=== PATIENT | female | born 1965 | race Caucasian/White ===

== ENCOUNTER → 2021-02-19 | Outpatient (CLI) | payer OTHER ==
[~2021-02-19] VITALS: Ht 154.9 cm; Wt 44.5 kg
[~2021-02-19] MED LIST: ASCO500T17 PO; LOSA50TA63 PO; MULT-593 PO; MV-M1TAB20 PO
== END | disposition home or self-care (01) ==
LOC: PREOP 05:59
PROVIDERS: ATTEND Surgery
DX: Z01.818 Encounter for other preprocedural examination (principal)

== ENCOUNTER 2021-03-20 07:00 | Day surgery (SDC) | payer OTHER ==
[~2021-03-20] VITALS: Ht 154.9 cm; Wt 44.5 kg
[2021-03-20] MEDS ORDERED: LACTATED RINGERS 1,000 ML IV STA (07:03)
[2021-03-20] MEDS ORDERED: LACTATED RINGERS 1,000 ML IV ONE (07:10)
[2021-03-20] MEDS ORDERED: MIDAZOLAM 2 MG/2 ML (VERSED) VIAL ONE (07:11)
[2021-03-20] MEDS ORDERED: PROPOFOL INJECTION 50 ML IV ONE (07:12)
[2021-03-20] MEDS ORDERED: HURRICAINE EXT TUBE (BENZOCAINE) XX PRN (07:15)
[2021-03-20 07:39] VITALS: BP 114/90
[2021-03-20 08:30] VITALS: BP 104/59
[2021-03-20 08:35] VITALS: BP 94/56
--- NOTE | 2021-03-20 08:39 | Progress Note-Post Operative ---
Post-Operative Progess Note Surgeon (s)/Senior Business Intelligence Analyst (s) Surgeon RANDALL BAIRES DO Senior Business Intelligence Analyst: na Pre-Operative Diagnosis gerd, family hx colon cancer, blood in stools Post-Operative Diagnosis hiatal hernia, gastritis, polyps, hemorrhoids Procedure & Operative Findings Date of Procedure 03/20/21 Procedure Performed/Findings egd c biopsies, colonoscopy c hot bx polypectomy x 4 Anesthesia Type per graphic artist Estimated Blood Loss Estimated blood loss (mL): none Specimens/Packing Specimens Removed antrum, ge, polyps RANDALL BAIRES DO Mar 20, 2021 08:39
[2021-03-20 08:40] VITALS: BP_SYST 96; BP_SYST 99; BP_DIAS 53
[2021-03-20] MEDS ORDERED: PANT40TA2 PO (08:40)
--- NOTE | 2021-03-20 08:43 | Discharge Inst-Simple/Standard ---
Discharge Inst-Standard Discharge Medications New, Converted or Re-Newed RX: Transmitted to Pharmacy Patient Instructions/Follow Up Plan of Care/Instructions/FU: 3 weeks keerthi Activity as Tolerated: Yes Discharge Diet: Regular Diet RANDALL BAIRES DO Mar 20, 2021 08:43
[2021-03-20 09:00] VITALS: BP 123/73
[2021-03-20 09:15] VITALS: BP 123/73
--- NOTE | 2021-03-20 13:42 | OPERATIVE REPORT ---
DATE OF SERVICE: 03/20/2021 PREOPERATIVE DIAGNOSES: Gastroesophageal reflux disease, family history of colon cancer, blood in stool. POSTOPERATIVE DIAGNOSES: Hiatal hernia, gastritis, polyps, hemorrhoids. PROCEDURE: EGD with biopsies, colonoscopy with hot biopsy polypectomy x4. SURGEON: Randall Willard DO ANESTHESIA: Per DANCE ARTIST. ESTIMATED BLOOD LOSS: None. COMPLICATIONS: None. INDICATIONS: The patient is a 56-year-old female with blood in stool, family history of colon cancer and GERD symptoms. She understands risks and benefits of procedure and wished to proceed with procedure. Consent was signed in the chart. DESCRIPTION OF PROCEDURE: The patient was taken to endoscopy suite, placed in left lateral recumbent position. Timeout was performed. Scope was inserted in mouth, down the esophagus, stomach and into the duodenum without difficulty. There were no polyps, masses or ulcerations within the duodenum. Scope was slowly retracted back into the stomach where it was further insufflated. The gastritis appearance was present in the antrum. Biopsy of the antrum was obtained. Scope was retroflexed noting a hiatal hernia, no other pathology. Scope was returned to its normal position and then slowly withdrawn to distal esophagus, some erythematous changes present. Biopsy of GE junction was obtained. Scope was slowly retracted back until completely removed. Digital rectal exam was performed noting internal hemorrhoids. No palpable polyps, masses or ulcerations. Scope was inserted in the rectum, advanced all the way to cecum with minimal difficulty. Prep was adequate. Scope was slowly retracted back. Small polyp in the cecum, which hot biopsy polypectomy was performed. Scope was then continuously retracted back. No polyps, masses or ulcerations within the ascending, transverse and descending colon. In sigmoid colon, a little bit larger polyp was present just under a centimeter in diameter. Hot biopsy polypectomy was performed. Scope was then continuously retracted back in the rectum where there were two other polyps, which hot biopsy polypectomy was performed. Scope was retroflexed noting some internal hemorrhoids. No other pathology. Scope was returned to its normal position, slowly withdrawn until completely removed. The patient tolerated procedure well without any complications, taken to recovery room in stable condition. RECOMMENDATIONS: The patient will follow up in a couple of weeks to discuss results. We will start on Protonix 40 mg daily. We would recommend repeat colonoscopy in 3 years. Any issues before that be seen at that time. If the patient continues to have bleeding, likely source is the hemorrhoids, which could do a hemorrhoidectomy if she wishes. Further recommendations pending how symptoms proceed. CC: Carlos Crum -- requested, unable to deliver. Job ID: [id number] DocumentID: [id number] Dictated Date: 03/20/2021 08:46:34 Rock Splitter Date: 03/20/2021 13:42:04 Dictated By: RANDALL WILLARD,
--- NOTE | 2021-03-20 15:03 | Anesthesia-General Post-Op ---
MAC Patient Condition Mental Status/LOC: Same as Preop Cardiovascular: Satisfactory Nausea/Vomiting: Absent Respiratory: Satisfactory Pain: Controlled Complications: Absent Post Op Complications Complications None Follow Up Care/Instructions Patient Instructions None needed. Anesthesiology Discharge Order Discharge Order Patient is doing well, no complaints, stable vital signs, no apparent adverse anesthesia problems. No complications reported per nursing. MAGUE BEY CRNA Mar 20, 2021 15:03
--- OUTSIDE RECORDS SUMMARY | 2021-03-26 09:09 | XMS REPORT | Clinical Summary ---
Author Author [facility] Organization [facility] Address Unknown Phone Unavailable Care Team Providers Care Poultice Machine Operator Name Role Phone Carlos Crum MD PCP Allergies Not on File Medications Not on file Active Problems Not on file Social History Date Tobacco Use Types Packs/Day Years Used Never Assessed Sex Assigned at Date Recorded Not on file Last Filed Vital Signs Not on file Plan of Treatment Not on file Results Not on filefrom Last 3 Months Advance Directives For more information, please contact: [phone] Patient Organ Builder Explanation Type Date Recorded Health Care Directive Care Teams Start Date End Date Poultice Machine Operator Relationship Specialty 06/16/19 Carlos Crum MD PCP - General Family Medicine
== END 2021-03-20 09:15 | disposition home or self-care (01) ==
LOC: SDC 07:00
PROVIDERS: ATTEND Surgery
DX: D12.5 Benign neoplasm of sigmoid colon (principal); K63.5 Polyp of colon; K29.70 Gastritis, unspecified, without bleeding; K44.9 Diaphragmatic hernia without obstruction or gangrene; K31.89 Other diseases of stomach and duodenum; K21.9 Gastro-esophageal reflux disease without esophagitis; K92.1 Melena; K64.8 Other hemorrhoids; I49.3 Ventricular premature depolarization; C44.729 Squamous cell carcinoma of skin of left lower limb, including hip; R19.5 Other fecal abnormalities; I10 Essential (primary) hypertension; F17.210 Nicotine dependence, cigarettes, uncomplicated; Z88.5 Allergy status to narcotic agent; Z79.899 Other long term (current) drug therapy; Z80.0 Family history of malignant neoplasm of digestive organs; Z83.3 Family history of diabetes mellitus
CPT/HCPCS: 88305